=== PATIENT | female | born 1985 | race African-American/Black ===

== ENCOUNTER 2017-10-30 01:14 | Emergency (ER) | payer OTHER ==
[2017-10-30 02:00] LABS: Absolute Monocytes 0.7 K/uL (0.1-1.3); Absolute Neutrophil 7.5 K/uL (1.8-8.0); Basophils % 1.1 % (0-1.3); Eosinophils % 1.4 % (0-4.4); Hematocrit 32.2 % (36.0-45.0); Lymphocytes % 26.3 % (15.3-44.8); MCH 23.5 pg (27.0-35.0); MCV 72.5 fL (80-100); MPV 7.8 fL (7.6-11.3); Monocytes % 6.5 % (3.3-12.3); RBC Red Blood Cell Count 4.45 M/uL (3.86-4.86)
[2017-10-30 02:18] LABS: ALT/SGPT 21 U/L (12-78); AST/SGOT 13 U/L (15-37); Albumin 3.1 g/dL (3.4-5.0); Alkaline Phosphatase 110 U/L (45-117); BUN Blood Urea Nitrogen 7 mg/dL (7-18); Bicarbonate 27 mmol/L (21-32); Bilirubin Direct < 0.1 mg/dL (0-0.2); Bilirubin Total 0.2 mg/dL (0.2-1.0); Glucose Level 90 mg/dL (74-106); Lipase 181 U/L (73-393); Potassium 3.6 mmol/L (3.5-5.1); Protein, Total 7.7 g/dL (6.4-8.2); Sodium Level 140 mmol/L (136-145)
[2017-10-30 02:31] LABS: Urine Blood 2+ (NEG); Urine Glucose NEGATIVE (NEG); Urine Protein NEGATIVE (NEG); Urine Specific Gravity >1.030 (1.005-1.030)
--- NOTE | 2017-10-30 03:32 | ER ---
Nurse's Notes [facility] Name: Esha Degroot Age: 32 yrs Sex: Female : 1985 Arrival Date: 10/30/2017 Time: 01:15 Bed 15 Private MD: Diagnosis: Other intra-abdominal and pelvic swelling, mass and lump-right adnexal lesion Presentation: 10/30 01:24 Presenting complaint: Patient states: she had a miscarriage last week and was told she bb had a spot on her fallopian tube the last few days she has had right lower abdominal pain and distention with slight nausea, denies diarrhea or vomiting states it feels like gas cramps which shoot down her right leg. Transition of care: patient was not received from another setting of care. Onset of symptoms was October 26, 2017. Risk Assessment: Do you want to hurt yourself or someone else? Patient reports no desire to harm self or others. Initial Sepsis Screen: Does the patient meet any 2 criteria? No. Patient's initial sepsis screen is negative. Does the patient have a suspected source of infection? No. Patient's initial sepsis screen is negative. Care prior to arrival: None. 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 - Social history:: Smoking status: Patient/guardian denies using tobacco, Patient uses alcohol, occasionally. Patient/guardian denies using street drugs. - Ebola Screening: : No symptoms or risks identified at this time. Screenin:32 Abuse screen: Denies threats or abuse. Denies injuries from another. Nutritional rv screening: No deficits noted. Nutritional screening: No deficits noted. Tuberculosis screening: No symptoms or risk factors identified. Fall Risk None identified. Assessment: 01:31 General: Appears in no apparent distress. comfortable, Behavior is calm, cooperative. rv Pain: Complains of pain in abdomen Pain radiates to right leg. Neuro: Level of Consciousness is awake, alert, obeys commands, Oriented to person, place, time, situation. Cardiovascular: Capillary refill < 3 seconds. Respiratory: Airway is patent. GI: Bowel sounds present X 4 quads. Abd is soft and non tender X 4 quads. : No signs and/or symptoms were reported regarding the genitourinary system. EENT: No signs and/or symptoms were reported regarding the EENT system. Derm: Skin is intact. 02:55 Reassessment: Patient appears in no apparent distress at this time. Patient and/or rv family updated on plan of care and expected duration. Pain level reassessed. Patient is alert, oriented x 3, equal unlabored respirations, skin warm/dry/pink. 03:18 General: Appears in no apparent distress. comfortable, Behavior is calm, cooperative, ao appropriate for age. Pain: Complains of pain in abdomen. Neuro: Level of Consciousness is awake, alert, obeys commands, Oriented to person, place, time, situation, Appropriate for age Moves all extremities. Full function Speech is normal, Facial symmetry appears normal. Cardiovascular: Capillary refill < 3 seconds Patient's skin is warm and dry. Respiratory: Airway is patent Respiratory effort is even, unlabored, Respiratory pattern is regular, symmetrical. GI: Bowel sounds present X 4 quads. : No signs and/or symptoms were reported regarding the genitourinary system. EENT: No signs and/or symptoms were reported regarding the EENT system. Derm: Skin is intact, Skin is pink, warm \T\ dry. normal, Skin temperature is warm. Musculoskeletal: Circulation, motion, and sensation intact. Range of motion: intact in all extremities. 03:46 Reassessment: DC instructions given to patient. Patient was advised to follow up with ao PCP. Patient agree with POC. Patient has no questions at this time. Vital Signs: 01:28 BP 136 / 85; Pulse 81; Resp 16 S; Temp 98.6(O); Pulse Ox 100% on R/A; Weight 135.62 kg bb (R); Height 6 ft. 0 in. (182.88 cm) (R); Pain 3/10; 02:54 BP 119 / 81; Pulse 70; Pulse Ox 100% on R/A; rv 03:20 BP 113 / 77; Pulse 66; Resp 14; Pulse Ox 100% on R/A; ao 01:28 Body Mass Index 40.55 (135.62 kg, 182.88 cm) bb ED Course: 01:15 Patient arrived in ED. ds1 01:27 Triage completed. bb 01:28 Arm band placed on Patient placed in an exam room, on a stretcher, on pulse oximetry. bb 01:32 Patient has correct armband on for positive identification. Bed in low position. Call rv light in reach. Side rails up X 1. Pulse ox on. NIBP on. 01:36 Harjinder Vega NP is PHCP. pm1 01:36 Gael Patton MD is Attending Physician. pm1 01:45 Inserted saline lock: 20 gauge in right antecubital area, using aseptic technique. rv Blood collected. 02:56 Awaiting lab results. rv 03:18 Tito Foy, RN is Primary Nurse. ao 03:31 Santiago Keys MD is Referral Physician. pm1 03:46 No provider procedures requiring assistance completed. IV discontinued, intact, ao bleeding controlled, No redness/swelling at site. Pressure dressing applied. Administered Medications: No medications were administered Outcome: 03:31 Discharge ordered by MD. pm1 03:46 Discharged to home ambulatory. ao 03:46 Condition: stable 03:46 Discharge instructions given to patient, Instructed on discharge instructions, follow up and referral plans. Demonstrated understanding of instructions, follow-up care, medications. 03:58 Patient left the ED. ao Signatures: Alexa Beth ds1 Nirali Miranda RN RN bb Tito Foy RN RN ao Harjinder Vega NP PUBLIC INFORMATION OFFICER pm1 Michael Cornelius RN RN rv
--- NOTE | 2017-10-30 03:32 | EDPHYS ---
Physician Documentation [facility] Name: Ehsa Degroot Age: 32 yrs Sex: Female : 1985 Arrival Date: 10/30/2017 Time: 01:15 Bed 15 Private MD: HALEY Physician Gael Patton HPI: 10/30 02:00 This 32 yrs old Black Female presents to ER via Ambulatory with complaints of Abdominal pm1 Pain. 02:00 The patient presents with abdominal pain in the lower abdomen. Onset: The pm1 symptoms/episode began/occurred 1 week(s) ago. The symptoms do not radiate. Associated signs and symptoms: Pertinent negatives: nausea, vomiting, and diarrhea, vaginal discharge, Vaginal bleeding. The symptoms are described as achy. Modifying factors: The symptoms are alleviated by nothing, the symptoms are aggravated by nothing. The patient has been recently seen by a physician: Dr. Keys with similar presenting complaints, and apparently given a diagnosis of Miscarriage, lab tests were done, an ultrasound was done. Patient presenting with concerns that she is still despite being given a diagnosis of a miscarriage by Dr. Keys. Patient reports that she is feeling the sensation of a baby moving. 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 - Social history:: Smoking status: Patient/guardian denies using tobacco, Patient uses alcohol, occasionally. Patient/guardian denies using street drugs. - Ebola Screening: : No symptoms or risks identified at this time. ROS: 02:00 Constitutional: Negative for fever, chills, and weight loss, Eyes: Negative for injury, pm1 pain, redness, and discharge, ENT: Negative for injury, pain, and discharge, Neck: Negative for injury, pain, and swelling, Cardiovascular: Negative for chest pain, palpitations, and edema, Respiratory: Negative for shortness of breath, cough, wheezing, and pleuritic chest pain, Back: Negative for injury and pain. 02:00 MS/Extremity: Negative for injury and deformity, Skin: Negative for injury, rash, and discoloration. 02:00 Neuro: Negative for headache, weakness, numbness, tingling, and seizure. 02:00 Abdomen/GI: Positive for abdominal pain, Negative for nausea, vomiting, and diarrhea. 02:00 : Positive for pelvic pain, Negative for vaginal bleeding, vaginal discharge. Exam: 02:00 Constitutional: This is a well developed, well nourished patient who is awake, alert, pm1 and in no acute distress. Head/Face: Normocephalic, atraumatic. Chest/axilla: Normal chest wall appearance and motion. Nontender with no deformity. No lesions are appreciated. Cardiovascular: Regular rate and rhythm with a normal S1 and S2. No gallops, murmurs, or rubs. Normal PMI, no JVD. No pulse deficits. Respiratory: Lungs have equal breath sounds bilaterally, clear to auscultation and percussion. No rales, rhonchi or wheezes noted. No increased work of breathing, no retractions or nasal flaring. Abdomen/GI: Soft, non-tender, with normal bowel sounds. No distension or tympany. No guarding or rebound. No evidence of tenderness throughout. Back: No spinal tenderness. No costovertebral tenderness. Full range of motion. Skin: Warm, dry with normal turgor. Normal color with no rashes, no lesions, and no evidence of cellulitis. MS/ Extremity: Pulses equal, no cyanosis. Neurovascular intact. Full, normal range of motion. 02:00 Neuro: Orientation: is normal, Motor: is normal, Sensation: is normal, no obvious gross deficits. 02:00 Psych: Behavior/mood is 02:00 Psych: Behavior/mood is anxious. Vital Signs: 01:28 BP 136 / 85; Pulse 81; Resp 16 S; Temp 98.6(O); Pulse Ox 100% on R/A; Weight 135.62 kg bb (R); Height 6 ft. 0 in. (182.88 cm) (R); Pain 3/10; 02:54 BP 119 / 81; Pulse 70; Pulse Ox 100% on R/A; rv 03:20 BP 113 / 77; Pulse 66; Resp 14; Pulse Ox 100% on R/A; ao 01:28 Body Mass Index 40.55 (135.62 kg, 182.88 cm) bb MDM: 01:37 Patient medically screened. pm1 03:30 Data reviewed: vital signs. Data interpreted: Pulse oximetry: on room air is 100 %. pm1 Interpretation: normal. Counseling: I had a detailed discussion with the patient and/or guardian regarding: the historical points, exam findings, and any diagnostic results supporting the discharge/admit diagnosis, lab results, the need for outpatient follow up, an OB/Gyne specialist, to return to the emergency department if symptoms worsen or persist or if there are any questions or concerns that arise at home. 03:30 ED course: Patient with ultrasound on 10/22 that shows no IUP and a small adnexal vague pm1 poorly defined lesion on the right measuring 2.3 x 1.5 cm. Equivocal/questionable for possible adnexal mass or ectopic . Beta HCG on 10/1860=591, 10/21 = 209, 10/28 = 62, and today = 36. No IUP with decreased Beta HCG is likely spontaneous . Recommended follow up with Dr. Keys for mass evaluation. 10/30 01:37 Order name: Basic Metabolic Panel; Complete Time: 02:23 pm10/30 01:37 Order name: CBC with Diff; Complete Time: 02:05 pm10/30 01:37 Order name: Hepatic Function; Complete Time: 02:23 pm10/30 01:37 Order name: Lipase; Complete Time: 02:23 10/30 01:52 Order name: Urine Dipstick--Ancillary (enter results); Complete Time: 03:16 10/30 01:52 Order name: Urine --Ancillary (enter results); Complete Time: 03:16 10/30 01:37 Order name: IV Saline Lock; Complete Time: 01:49 pm10/30 01:37 Order name: Labs collected and sent; Complete Time: 01:49 pm10/30 01:37 Order name: Urine Dipstick-Ancillary (obtain specimen); Complete Time: 01:44 pm10/30 01:37 Order name: Urine Test (obtain specimen); Complete Time: 01:44 pm10/30 02:04 Order name: NPO; Complete Time: 02:05 pm10/30 02:04 Order name: Quantitative Hcg; Complete Time: 03:16 pm10/30 02:04 Order name: Abo/rh Typing; Complete Time: 03:16 pm1 Administered Medications: No medications were administered Disposition: 06:37 Co-signature as Attending Physician, Gael Patton MD I agree with the assessment and surinder plan of care. Disposition: 10/30/17 03:31 Discharged to Home. Impression: Other intra-abdominal and pelvic swelling, mass and lump - right adnexal lesion. - Condition is Stable. - Discharge Instructions: Pelvic Mass. - Medication Reconciliation Form, Thank You Letter form. - Follow up: Emergency Department; When: As needed; Reason: Worsening of condition. Follow up: Santiago Keys MD; When: 2 - 3 days; Reason: Recheck today's complaints, Continuance of care, Re-evaluation by your physician. - Problem is new. - Symptoms have improved. Signatures: Dispatcher [employer] EDMS Gael Patton MD MD cha Ballard, Brenda, RN RN Tito Sommer RN RN ao Marinas, Patrick, RN LACTATION CONSULTANT RN LACTATION CONSULTANT pm1 Corrections: (The following items were deleted from the chart) 03:45 03:31 10/30/2017 03:31 Discharged to Home. Impression: Spontaneous . Condition pm1 is Stable. Forms are Medication Reconciliation Form, Thank You Letter, Antibiotic Education, Prescription Opioid Use. Follow up: Emergency Department; When: As needed; Reason: Worsening of condition. Follow up: Santiago Keys; When: 2 - 3 days; Reason: Recheck today's complaints, Continuance of care, Re-evaluation by your physician. Problem is new. Symptoms have improved. pm1 03:56 02:00 : Positive for pelvic pain, Negative for pm1 pm1 03:58 03:45 10/30/2017 03:31 Discharged to Home. Impression: Other intra-abdominal and pelvic ao swelling, mass and lump - right adnexal lesion. Condition is Stable. Discharge Instructions: Miscarriage. Forms are Medication Reconciliation Form, Thank You Letter. Follow up: Emergency Department; When: As needed; Reason: Worsening of condition. Follow up: Santiago Keys; When: 2 - 3 days; Reason: Recheck today's complaints, Continuance of care, Re-evaluation by your physician. Problem is new. Symptoms have improved. pm1
== END 2017-10-30 03:58 | disposition home or self-care (01) ==
LOC: ER 01:14
DX: R19.00 Intra-abdominal and pelvic swelling, mass and lump, unspecified site (principal); Z88.0 Allergy status to penicillin; Z91.09 Other allergy status, other than to drugs and biological substances
CPT/HCPCS: 36415; 80048; 80076; 81003; 81025; 83690; 84702; 85025; 86900; 86901; 99283

== ENCOUNTER 2019-10-03 17:18 | Emergency (ER) | payer OTHER ==
--- OUTSIDE RECORDS SUMMARY | 2019-10-03 17:20 | XMS REPORT ---
:1985 Author Organization [employer] Care Team Providers Name Role Phone Yves Love Provider Role Unavailable Allergies No Known Allergies Problems Problem Type Condition Code Onset Dates Condition Statu s Problem Adult BMI 40.0-44.9 kg/sq m Z68.41 Active Problem Iron deficiency anemia, unspecified D50.9 Active iron deficiency anemia type Medications No Known Medications Results No Known Results Summary Purpose [employer] Submission
--- OUTSIDE RECORDS SUMMARY | 2019-10-03 17:20 | XMS REPORT | Continuity of Care Document ---
:1985 Author Organization [facility] t Address [address] [place] [address] Care Team Providers Name Role Phone Unavailable Unavailable Unavailable Payers Payer Name Policy Type Policy Number Effective Date Expiration Date S ource Problems Condition Condition Condition Status Onset Resolution Last Treating Co mments Source Name Details Category Date Date Treatment Clinician Date Adult BMI Adult BMI Problem Active [facility] 40.0-44.9 40.0-44.9 Luke s - kg/sq m kg/sq m [facility] Iron Iron Problem Active [facility] deficiency deficiency Renate kes - anemia, anemia, Memoria unspecifie unspecifie l d iron d iron Outpati deficiency deficiency en t anemia anemia Clinics type type Allergies, Adverse Reactions, Alerts Allergy Allergy Status Severity Reaction(s) Onset Inactive Treating Comm ents Source Name Type Date Date Clinician iodine DA Active [facility] 2017-02 [facility] penicill DA Active SV 2017-02 [facility] shellfis DA Active SV 2017-02 [facility] [place] Penicill Adverse Active [facility] Iodine Adverse Active Swelling [facility] Betadine Adverse [facility] Medications Ordered Filled Start Stop Current Ordering Indication Dosage Frequency Signature Comments Components Source Medication Medication Date Date Medication? Clinician (SIG) Name Name Furosemide Furosemide Yes Yves [address] [facility] 09[facility]09 [facility] - [facility]: [address] [facility] Procedures This patient has no known procedures. Encounters Start End Encounter Admission Attending Care Care Encounter Source Date/Time Date/Time Type Type Clinicians Facility Department ID 2019-09-14 2019-09-14 Outpatient Remy Lubin [id number] [facility] 15:58:00 15:58:00 [facility] ent Clinics 2019-09-10 2019-09-10 Outpatient Remy Lubin [id number] [facility] 15:00:00 15:00:00 [facility] [place] [facility] 2019-08-20 2019-08-20 Outpatient Remy Lubin [id number] [facility] 14:37:00 14:37:00 [employer] [facility] 2019-08-20 2019-08-20 Outpatient Remy Lubin [id number] [facility] 13:30:00 13:30:00 [facility] [place] Results This patient has no known results.
--- OUTSIDE RECORDS SUMMARY | 2019-10-03 17:20 | XMS REPORT ---
:1985 Author Organization [employer] Care Team Providers Name Role Phone Yves Love Provider Role Unavailable Allergies No Known Allergies Problems Problem Type Condition Code Onset Dates Condition Statu s Problem Adult BMI 40.0-44.9 kg/sq m Z68.41 Active Medications No Known Medications Results No Known Results Summary Purpose [employer] Submission
--- OUTSIDE RECORDS SUMMARY | 2019-10-03 17:20 | XMS REPORT ---
:1985 Author Organization [employer] Care Team Providers Name Role Phone Ivan [facility] Provider Role Unavailable Allergies, Adverse Reactions, Alerts Substance Reaction Event Type Penicillin G Sodium swelling Drug Allergy Iodine Swelling Drug Allergy Betadine Swelling Drug Allergy Problems Problem Type Condition Code Onset Dates Condition Statu s Assessment Adult BMI 40.0-44.9 kg/sq m Z68.41 Active Problem Adult BMI 40.0-44.9 kg/sq m Z68.41 Active Problem Iron deficiency anemia, unspecified D50.9 Active iron deficiency anemia type Assessment Multiple joint pain M25.50 Active Assessment Fatigue, unspecified type R53.83 Ac tive Assessment Peripheral edema R60.9 Active Assessment Iron deficiency anemia, unspecified D50.9 Active iron deficiency anemia type Medications Medication Code System Code Instructions Start Date End Date Status Dosage Furosemide [facility] [id number] 20 MG Orally Once September 09, Active 1 tablet a day PRN 2019 Edema Results No Known Results Summary Purpose [employer] Submission
--- OUTSIDE RECORDS SUMMARY | 2019-10-03 17:20 | XMS REPORT ---
:1985 Author Organization [employer] Care Team Providers Name Role Phone Ivan [facility] Provider Role Unavailable Allergies, Adverse Reactions, Alerts Substance Reaction Event Type Penicillin G Sodium swelling Drug Allergy Iodine Swelling Drug Allergy Betadine Swelling Drug Allergy Problems Problem Type Condition Code Onset Dates Condition Statu s Assessment Well adult on routine health check Z00.00 Active Problem Adult BMI 40.0-44.9 kg/sq m Z68.41 Active Assessment Adult BMI 40.0-44.9 kg/sq m Z68.41 Active Assessment Peripheral edema R60.9 Active Assessment Shortness of breath R06.02 Active Medications No Known Medications Results No Known Results Summary Purpose [employer] Submission
--- NOTE | 2019-10-03 18:25 | RAD REPORT ---
EXAM DESCRIPTION: RAD - Ankle Right 3 View - 10/03/2019 6:18 pm CLINICAL HISTORY: Right ankle pain FINDINGS: No fracture or dislocation is seen.
--- NOTE | 2019-10-03 18:26 | RAD REPORT ---
EXAM DESCRIPTION: RAD - Knee Right 3 View - 10/03/2019 6:18 pm CLINICAL HISTORY: Right knee pain status post injury FINDINGS: No fracture or dislocation is seen.
[2019-10-03] MEDS ORDERED: HYDROCODONE/APAP 10/325 TAB ONE (19:57)
--- NOTE | 2019-10-03 20:19 | ER ---
Nurse's Notes [facility] Name: Esha Degroot Age: 34 yrs Sex: Female : 1985 Arrival Date: 10/03/2019 Time: 17:21 Bed 18 Private MD: Diagnosis: Sprain of ankle Presentation: 10/02 17:24 Chief complaint: Patient states: "I don't know if i sprained it or what. 6 months ago I jd3 stepped in a hole and i was having a problem walking on it. the pain went away, but here in the last couple of days the pain has been returning and today it won't go away. my right knee has also been hurting worse along with that right ankle.". Coronavirus screen: At this time, the client does not indicate any symptoms associated with coronavirus-19. Ebola Screen: Patient negative for fever greater than or equal to 101.5 degrees Fahrenheit, and additional compatible Ebola Virus Disease symptoms. Initial Sepsis Screen: Does the patient meet any 2 criteria? No. Patient's initial sepsis screen is negative. Does the patient have a suspected source of infection? No. Patient's initial sepsis screen is negative. Risk Assessment: Do you want to hurt yourself or someone else? Patient reports no desire to harm self or others. Onset of symptoms was October 03, 2019. 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 - Social history:: Smoking status: Patient/guardian denies using tobacco, but has a distant history of tobacco abuse. Screenin:00 Abuse screen: Denies threats or abuse. Denies injuries from another. Nutritional ca1 screening: No deficits noted. Tuberculosis screening: No symptoms or risk factors identified. Fall Risk None identified. Assessment: 19:00 General: Appears in no apparent distress. comfortable, Behavior is calm, cooperative, ca1 appropriate for age. Pain: Complains of pain in right ankle Pain currently is 7 out of 10 on a pain scale. Neuro: Level of Consciousness is awake, alert, obeys commands, Oriented to person, place, time, situation. Derm: Skin is intact, is healthy with good turgor, Skin is pink, warm \\T\\ dry. Musculoskeletal: Circulation, motion, and sensation intact. Capillary refill < 3 seconds, Range of motion: limited in right ankle. 19:51 Reassessment: Patient appears in no apparent distress at this time. Patient is alert, ca1 oriented x 3, equal unlabored respirations, skin warm/dry/pink. Vital Signs: 17:27 BP 120 / 87; Pulse 89; Resp 16 S; Temp 98.7(O); Pulse Ox 97% on R/A; Weight 136.53 kg jd3 (R); Height 5 ft. 11 in. (180.34 cm) (R); Pain 8/10; 19:00 BP 109 / 56; Pulse 61; Resp 15 S; Pulse Ox 98% on R/A; ca1 17:27 Body Mass Index 41.98 (136.53 kg, 180.34 cm) jd3 ED Course: 17:21 Patient arrived in ED. as 17:26 Triage completed. jd3 17:28 Arm band placed on. jd3 18:08 Emigdio Contreras PA is PHCP. jmm 18:08 Gael Patton MD is Attending Physician. jmm 18:16 XRAY Ankle RIGHT 3 view In Process Unspecified. EDMS 18:17 XRAY Knee RIGHT 3 view In Process Unspecified. EDMS 18:49 Emigdio Contreras PA is PHCP. jmm 18:49 Gael Patton MD is Attending Physician. jmm 19:00 Patient has correct armband on for positive identification. Bed in low position. Call ca1 light in reach. Side rails up X 1. Pulse ox on. NIBP on. 19:41 Barb Haines, RN is Primary Nurse. ca1 20:17 US Extremity Venous Unilateral Ltd In Process Unspecified. EDMS 20:18 Ultrasound completed. Patient tolerated well. Notified ED Physician emigdio. sg3 20:18 Pepe Martin MD is Referral Physician. jmm 20:40 Ortho shoe applied to right foot. mg2 20:49 No provider procedures requiring assistance completed. Patient did not have IV access mg2 during this emergency room visit. Administered Medications: 19:49 Drug: [place] 10 mg-325 mg 1 tabs {Note: rass 0.} Route: PO; ca1 20:20 Follow up: Response: No adverse reaction; RASS: Alert and Calm (0) mg2 Outcome: 20:18 Discharge ordered by . [place] 20:49 Discharged to home ambulatory. mg2 20:49 Condition: good 20:49 Discharge instructions given to patient, Instructed on discharge instructions, follow up and referral plans. medication usage, Demonstrated understanding of instructions, follow-up care, medications, Prescriptions given X 1. 20:50 Patient left the ED. mg2 Signatures: Dispatcher [employer] EDMS Emigdio Contreras PA PA jmm Martinez, Amelia as Davies, Jonathon RN RN jd3 Camelia Crawford 3 Ayo Botello RN RN mg2 Barb Haines RN RN ca1 Corrections: (The following items were deleted from the chart) 17:32 17:24 Chief complaint: Patient states: "I don't know if i sprained it or what. 6 months jd3 ago I stepped in a hole and i was having a problem walking on it. the pain went away, but here in the last couple of days the pain has been returning and today it won't go away." jd3 19:52 19:51 BP 109 / 56; Pulse 60bpm; Resp 15bpm; Spontaneous; Pulse Ox 98% RA; ca1 ca1
--- NOTE | 2019-10-03 20:19 | EDPHYS ---
Physician Documentation [facility] Name: Esha Degroot Age: 34 yrs Sex: Female : 1985 Arrival Date: 10/03/2019 Time: 17:21 Bed 18 Private MD: ED Physician Gael Patton HPI: 10/02 19:25 This 34 yrs old Black Female presents to ER via Wheelchair with complaints of Ankle jmm Swelling. 19:25 The patient presents with a laceration, pain. Onset: The symptoms/episode jmm began/occurred acutely, 3 day(s) ago. Context: the patient is able to ambulate. Associated signs and symptoms: Pertinent positives: swelling. Modifying factors: The symptoms are alleviated by nothing, the symptoms are aggravated by nothing. This is a 34 year old female that presents to the ED with complaints of right ankle pain and swelling beginning approx 3 days ago. Patient states she had previously injured the same ankle approx 6 months ago. . 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 - Social history:: Smoking status: Patient/guardian denies using tobacco, but has a distant history of tobacco abuse. ROS: 19:28 Constitutional: Negative for fever, chills, and weight loss, Cardiovascular: Negative jmm for chest pain, palpitations, and edema, Respiratory: Negative for shortness of breath, cough, wheezing, and pleuritic chest pain. 19:28 MS/extremity: Positive for pain, swelling. 19:28 All other systems are negative. Exam: 19:28 Constitutional: This is a well developed, well nourished patient who is awake, alert, jmm and in no acute distress. Head/Face: atraumatic. Eyes: EOMI, no conjunctival erythema appreciated ENT: Moist Mucus Membranes Neck: Trachea midline, Supple Chest/axilla: Normal chest wall appearance and motion. Cardiovascular: Regular rate and rhythm. No edema appreciated Respiratory: Normal respirations, no respiratory distress appreciated Abdomen/GI: Non distended, soft Back: Normal ROM Skin: General appearance color normal 19:28 Musculoskeletal/extremity: swelling noted to the right ankle, full dorsalis pulse noted, compartments are soft, nvi. 19:28 Skin: Appearance: Color: normal in color. 19:28 Neuro: Orientation: is normal, Mentation: is normal, Memory: is normal, Motor: is normal. 19:28 Psych: Behavior/mood is pleasant, cooperative. Vital Signs: 17:27 BP 120 / 87; Pulse 89; Resp 16 S; Temp 98.7(O); Pulse Ox 97% on R/A; Weight 136.53 kg jd3 (R); Height 5 ft. 11 in. (180.34 cm) (R); Pain 8/10; 19:00 BP 109 / 56; Pulse 61; Resp 15 S; Pulse Ox 98% on R/A; ca1 17:27 Body Mass Index 41.98 (136.53 kg, 180.34 cm) jd3 MDM: 18:51 Patient medically screened. [facility] 20:17 Data reviewed: vital signs, nurses notes. Counseling: I had a detailed discussion with [place] the patient and/or guardian regarding: the historical points, exam findings, and any diagnostic results supporting the discharge/admit diagnosis, radiology results, the need for outpatient follow up, to return to the emergency department if symptoms worsen or persist or if there are any questions or concerns that arise at home. ED course: Patient advised to follow up with ortho for further evaluation. Patient understood and agrees with the plan of care. . 10/02 17:30 Order name: XRAY Ankle RIGHT 3 view; Complete Time: 18:35 [facility] 10/02 17:30 Order name: XRAY Knee RIGHT 3 view; Complete Time: 18:35 [facility] 10/02 19:10 Order name: US Extremity Venous Unilateral Ltd; Complete Time: 20:[address] [facility] 10/02 20:17 Order name: Misc. Order: Ortho Boot; Complete Time: 20:[address] [facility] Administered Medications: 19:49 Drug: [place] 10 mg-325 mg 1 tabs {Note: rass 0.} Route: PO; ca1 20:20 Follow up: Response: No adverse reaction; RASS: Alert and Calm (0) mg2 Disposition: 10/03 08:59 Co-signature as Attending Physician, Gael Patton MD I agree with the assessment and surinder plan of care. Disposition: 10/03/19 20:18 Discharged to Home. Impression: Sprain of ankle. - Condition is Stable. - Discharge Instructions: Ankle Sprain. - Prescriptions for Ultracet 37.5- 325 mg Oral Tablet - take 1 tablet by ORAL route every 6 hours - for up to 5 days; do not exceed 8 tablets per day.; 12 tablet. - Medication Reconciliation Form, Thank You Letter, Antibiotic Education, Prescription Opioid Use form. - Follow up: Pepe Martin MD; When: 2 - 3 days; Reason: Recheck today's complaints, Continuance of care, Re-evaluation by your physician. Signatures: Dispatcher [employer] EDGael Milligan MD MD cha Mickail, Joel, PA PA jmm Davies, Jonathon RN RN jd3 Ayo Botello RN RN mg2 Barb Haines RN RN ca1 Corrections: (The following items were deleted from the chart) 10/02 20:50 20:18 10/03/2019 20:18 Discharged to Home. Impression: Sprain of ankle. Condition is mg2 Stable. Forms are Medication Reconciliation Form, Thank You Letter, Antibiotic Education, Prescription Opioid Use. Follow up: Dr. Pepe Martin; When: 2 - 3 days; Reason: Recheck today's complaints, Continuance of care, Re-evaluation by your physician. [place]
--- NOTE | 2019-10-03 20:26 | RAD REPORT ---
EXAM DESCRIPTION: USExtrembenito Venous Uni Ltd10/03/2019 8:17 pm CLINICAL HISTORY: Right leg pain and swelling. COMPARISON: None. FINDINGS: Right common femoral, superficial femoral, popliteal and right posterior tibial veins are compressible and demonstrate augmentation. Doppler demonstrates good flow. IMPRESSION: No evidence of deep venous thrombosis involving the right lower extremity.
== END 2019-10-03 20:50 | disposition home or self-care (01) ==
LOC: ER 17:18
DX: S93.401A Sprain of unspecified ligament of right ankle, initial encounter (principal); X58.XXXA Exposure to other specified factors, initial encounter; Z88.0 Allergy status to penicillin; Z91.09 Other allergy status, other than to drugs and biological substances
CPT/HCPCS: 93971; 99284